=== PATIENT | male | born 2000 | race African-American/Black ===

== ENCOUNTER 2020-05-11 15:31 | Emergency (ER) | payer MEDICAID ==
[~2020-05-11] VITALS: Ht 172.7 cm; Wt 66.0 kg
[2020-05-11 15:34] VITALS: BP 112/56
[2020-05-11] MEDS ORDERED: HYDROCODONE/ACETAMINOPHEN 5/325MG TABLET PO ONE (16:00)
[2020-05-11] MEDS ORDERED: BACITRACIN ZINC OINT UDPKT TOP ONE (16:00)
[2020-05-11] MEDS ORDERED: TETANUS, DIPHTHERIA, PERTUSSIS VAC/PF 0.5ML (>7YR OLD) IM ONE (16:00)
[2020-05-11] MEDS ORDERED: ONDANSETRON 4MG ODT PO ONE (16:00)
[2020-05-11] MEDS ORDERED: LIDOCAINE HCL/PF 1% 10 MG/ML 5ML VIAL IJ ONE (16:00)
== END 2020-05-11 18:07 | disposition home or self-care (01) ==
LOC: ER 15:31
DX: S61.411A Laceration without foreign body of right hand, initial encounter (principal); Z91.018 Allergy to other foods; V43.53XA Car driver injured in collision with pick-up truck in traffic accident, initial encounter; Y93.89 Activity, other specified; Y92.488 Other paved roadways as the place of occurrence of the external cause
CPT/HCPCS: 12002; 73130; 90471; 90715; 99283; J3490; Q0162

== ENCOUNTER 2020-05-14 11:43 | Emergency (ER) | payer MEDICAID ==
[~2020-05-14] VITALS: Ht 170.2 cm; Wt 64.0 kg
[2020-05-14 11:45] VITALS: BP 106/50
[2020-05-14] MEDS ORDERED: BACITRACIN ZINC OINT UDPKT TOP ONE (12:45)
[2020-05-14] MEDS ORDERED: ACETAMINOPHEN 325MG TABLET PO ONE (12:45)
[2020-05-14] MEDS ORDERED: CEPHALEXIN 250MG CAPSULE PO ONE (12:45)
== END 2020-05-14 13:05 | disposition home or self-care (01) ==
LOC: ER 11:43
DX: Z48.00 Encounter for change or removal of nonsurgical wound dressing (principal)
CPT/HCPCS: 99283; 99284

== ENCOUNTER 2020-05-19 13:39 | Emergency (ER) | payer MEDICAID ==
[~2020-05-19] VITALS: Ht 170.2 cm; Wt 65.0 kg
[2020-05-19 13:59] VITALS: BP 131/48
[2020-05-19] MEDS ORDERED: BACITRACIN ZINC OINT UDPKT TOP ONE (14:15)
== END 2020-05-19 14:33 | disposition home or self-care (01) ==
LOC: ER 13:43
DX: Z48.00 Encounter for change or removal of nonsurgical wound dressing (principal)
CPT/HCPCS: 99283

== ENCOUNTER 2020-05-29 14:49 | Emergency (ER) | payer MEDICAID ==
[~2020-05-29] VITALS: Ht 172.7 cm; Wt 65.0 kg
[2020-05-29 15:29] VITALS: BP 106/58
== END 2020-05-29 15:30 | disposition home or self-care (01) ==
LOC: ER 14:49
DX: S61.210D Laceration without foreign body of right index finger without damage to nail, subsequent encounter (principal); X58.XXXD Exposure to other specified factors, subsequent encounter
CPT/HCPCS: 99281

== ENCOUNTER 2021-02-02 14:55 | Emergency (ER) | payer MEDICAID ==
[~2021-02-02] VITALS: Ht 170.2 cm; Wt 68.0 kg
[2021-02-02] MEDS ORDERED: IBUPROFEN 600MG TABLET PO ONE (16:00)
[2021-02-02] MEDS ORDERED: TETANUS, DIPHTHERIA, PERTUSSIS VAC/PF 0.5ML (>7YR OLD) IM ONE (16:00)
[2021-02-02 16:03] LABS: BASOPHILS % 0.5 % (0.0-2.0); EOSINOPHILS % 0.6 % (0.0-5.0); HEMATOCRIT. 42.2 % (42.0-52.0); HEMOGLOBIN. 13.8 g/dL (14.0-18.0); LYMPHOCYTES % 16.8 % (20.0-50.0); MEAN CORPUSCULAR HEMOGLOBIN 27.8 pg (28.0-32.0); MEAN CORPUSCULAR VOLUME 84.8 fL (80.0-94.0); MEAN PLATELET VOLUME 9.4 fl (7.4-10.4); MONOCYTES % 6.3 % (2.0-8.0); NEUTROPHILS % 75.8 % (40.0-76.0); PLATELET 163 x1000/uL (130-400); RED BLOOD CELL COUNT 4.98 mill/uL (4.7-6.1); RED CELL DISTRIBUTION WIDTH 13.5 % (11.6-14.6)
[2021-02-02 16:12] LABS: CHLORIDE 108 mEq/L (98-107)
[2021-02-02 16:14] LABS: INR 1.1; PARTIAL THROMBOPLASTIN TIME 24.5 sec (23.4-31.0); PROTHROMBIN TIME 11.7 sec (9.6-11.0)
[2021-02-02 16:18] LABS: ETHANOL BLOOD < 10 mg/dL
[2021-02-02] MEDS ORDERED: LIDOCAINE HCL/EPINEPHRINE 1%-EPI 1:100,000 10 ML VIAL IJ ONE (19:00)
[2021-02-02] MEDS ORDERED: BACITRACIN ZINC OINT UDPKT TOP ONE (19:00)
[2021-02-02] MEDS ORDERED: LIDOCAINE HCL/EPINEPHRINE 1%-EPI 1:100,000 20 ML VIAL INFIL NR (19:11)
[2021-02-02 20:53] VITALS: BP 120/62
[2021-02-02] MEDS ORDERED: IOHEXOL-350 100 ML BOTTLE ONE (23:32)
== END 2021-02-02 20:55 | disposition home or self-care (01) ==
LOC: ER 14:55
DX: S51.831A Puncture wound without foreign body of right forearm, initial encounter (principal); X95.9XXA Assault by unspecified firearm discharge, initial encounter; Y93.89 Activity, other specified; Y92.9 Unspecified place or not applicable
CPT/HCPCS: 24200; 36415; 73080; 73090; 73206; 80048; 80320; 85025; 85610; 85730; 90471; 90715; 99285; J3490; Q9967; G0480

== ENCOUNTER 2021-02-10 13:54 | Emergency (ER) | payer MEDICAID ==
[~2021-02-10] VITALS: Ht 170.2 cm; Wt 70.0 kg
[2021-02-10 14:04] VITALS: BP 113/38
[2021-02-10] MEDS ORDERED: BACITRACIN ZINC OINT UDPKT TOP ONE (14:30)
== END 2021-02-10 14:57 | disposition home or self-care (01) ==
LOC: ER 13:54
DX: Z48.00 Encounter for change or removal of nonsurgical wound dressing (principal); F12.10 Cannabis abuse, uncomplicated
CPT/HCPCS: 99282